=== PATIENT | female | born 1985 | race Hispanic/Latino ===

== ENCOUNTER → 2019-03-04 | Outpatient (CLI) | payer OTHER ==
--- NOTE | 2019-03-05 08:56 | US ---
EXAM DESCRIPTION: Venous,Lower Extremity LT: ULTRASOUND. CLINICAL HISTORY: PAIN OF LEFT CALF COMPARISON: None Available. TECHNIQUE: Yo-scale and doppler sonographic evaluation of the deep venous system of the left lower extremity. FINDINGS: Doppler evaluation shows normal color flow and normal phasicity and augmentation of the left common femoral vein, femoral vein, popliteal vein, greater saphenous vein, junction with the CFV. Also normal color flow and normal phasicity and augmentation of the peroneal, and posterior tibial vein. The left lower extremity deep veins were completely compressible; normal occlusion with transducer pressure. Yo-scale survey showed no echogenic thrombus within these veins. IMPRESSION: 1. Duplex ultrasound evaluation of the left lower extremity deep venous system showing no evidence of thrombosis. Electronically signed by: Clifford Cruz MD 03/05/2019 8:55 AM FIRE RANGE TECHNICIAN
== END ==
LOC: US 13:02
PROVIDERS: ATTEND Nurse Practitioner Family
DX: M79.662 Pain in left lower leg (principal)

== ENCOUNTER → 2019-03-05 | Outpatient (CLI) | payer SELFPAY ==
--- NOTE | 2019-03-06 18:40 | US ---
EXAM DESCRIPTION: Breast,Bilateral: Ultrasound CLINICAL HISTORY: 33 yearsFemaleBREAST CYST . Bilateral lumpiness of breast, upper outer quadrants. Minimal tenderness and pain. No personal history of breast cancer. Remote family history of ovarian cancer. Menarche age 13. Childbirth age 20. Premenopausal. Lifetime risk of developing breast cancer (Tyrer-Cuzick model)(%): Not calculated due to age patient less than 35 years. COMPARISON: Other TECHNIQUE: Transcutaneous scanning of the bilateral breasts utilizing mendieta-scale and Doppler modes. Scanning performed by the brewery technician ; observation by Dr. Cruz. FINDINGS: Ultrasound: Scanning of the bilateral breast upper outer quadrants. Mostly fibroglandular tissues with minimal fatty replacement. No dominant solid mass or distinct cyst. No parenchymal edema or large calcifications. No overlying skin changes. No abnormal vascularity. IMPRESSION: No suspicious or significant imaging findings. BI-RADS CATEGORY: 1 - NEGATIVE FOLLOW UP: The region of interest should be followed on clinical grounds and if noted to change in size or character, a directed follow-up ultrasound examination may be performed. Written communication explaining the findings and follow-up, will be mailed to the patient and referring health care provider. The FINDINGS and the FOLLOW-UP plan were reviewed in person with the patient after the examination. Electronically signed by: Clifford Cruz MD 03/06/2019 6:38 PM PRIMARY SCHOOL TEACHER LIBRARIAN
== END ==
LOC: US 11:07
PROVIDERS: ATTEND Specialist
DX: N60.02 Solitary cyst of left breast (principal)